=== PATIENT | female | born 1930 | race Caucasian/White ===

== ENCOUNTER 2017-01-08 08:42 | Day surgery (SDC) | payer MEDICARE, OTHER ==
[~2017-01-08] VITALS: Ht 154.9 cm; Wt 62.4 kg
--- NOTE | 2017-01-08 07:16 | PCM.HPANE ---
Patient Data Surgeon Admitting Provider: Attending Provider:Jenaro Arteaga DO Primary Care Physician:Isma Cota DO Other Provider:Velma Hernandezingham Anesthesia Reason for Visit Right Middle Trigger Finger Ht/WT & BMI Height (Feet): 5 Height (Inches): 1 Weight (Kilograms): 62.41 Body Mass Index 25.00 Allergies Coded Allergies: codeine (Verified Allergy, Severe, RASH, 11/01/14) diazepam (Unverified Allergy, Severe, HIVES, 11/01/14) hydrocodone (Unverified Allergy, Severe, RASH, ITCHING, 11/01/14) tramadol (Verified Allergy, Severe, RASH, 11/01/14) morphine (Unverified Allergy, Unknown, UNKNOWN, 11/01/14) propoxyphene (Verified Adverse Reaction, Severe, N&V, DIZZINESS, 11/01/14) Past Anesthesia History Anesthesia History: Denies:: Abnormal Airway, Anesthesia Reactions, Difficult Intubation, Malignant Hyperthermia Diabetes History Hx Diabetes?: Yes (last found Hgb A1c 6.5 on 11/14/16) Type of Diabetes: Type II Glycemic Control: Diet Controlled Current Bedside Blood Glucose: 108 MRSA MRSA: No Medications Blood Thinner: Aspirin Hypertension Medication: Yes Home Meds Incl Beta Del: Yes Reported Medications Cholecalciferol (Vitamin D3) (Vitamin D3)2,000 Unit Tablet2,000 Unit PO DAILY 01/06/17 Ascorbate Calcium (Vitamin C)500 Mg Zntdeq533 Mg PO DAILY 01/06/17 Febuxostat (Uloric)40 Mg Ltmqmt76 Mg PO DAILY 01/06/17 Spironolactone 25 Mg Ikesmu71.5 Mg PO DAILY #30 TABLET Ref 0 01/06/17 Pravastatin 80 Mg Zqtpbd83 Mg PO HS Ref 0 01/06/[address] 40 Mg Tablet.dr40 Mg PO DAILY Ref 0 01/06/17 Metformin 500 Mg Bluptn081 Mg PO DAILY Ref 0 01/06/17 Psyllium Husk (Metamucil)3.4 Gram/5.4 Gram Powder1 Capsule PO DAILY 01/06/17 Lisinopril 40 Mg Lubpvs29 Mg PO DAILY 30 Days Ref 0 01/06/17 Levothyroxine 25 Mcg Sfovsm72 Mcg PO DAILY Ref 0 01/06/17 Furosemide 40 Mg Dnxpee96 Mg PO DAILY 01/06/17 Multivits-Min/FA/Lycopene/Lut (Centrum Silver Tablet)1 Each Tablet1 Each PO DAILY 01/06/17 Carvedilol 12.5 Mg Cbsryu69.5 Mg PO BID Ref 0 01/06/17 Calcium Carbonate/Vitamin D3 (Calcium + Vitamin D Tablet)1 Each Tablet1 Each PO DAILY 01/06/17 Aspirin 325 Mg Oqbkvg476 Mg PO DAILY #1 BOTTLE 01/06/17 Acetaminophen (Tylenol Arthritis)650 Mg Tablet.er650 Mg PO Q8H PRN For Pain 01/06/17 Discontinued Reported Medications Acetaminophen (Tylenol)325 Mg Ixyceg433 Mg PO BID PRN For Pain 11/02/14 Cholecalciferol (Vitamin D3) (Vitamin D)2,000 Unit Capsule2,000 Unit PO EVERY OTHER DAY 30 Days Ref 0 11/01/14 Bisacodyl (Dulcolax)5 Mg Tablet.dr5 Mg PO HS PRN For Constipation Ref 0 03/29/14 Furosemide 40 Mg Eeraku80 Mg PO DAILY 30 Days 03/29/14 Lisinopril 40 Mg Pjwrzj20 Mg PO BID 30 Days Ref 0 03/29/14 Psyllium Seed (with Sugar) (Metamucil Packet)1 Each Packet1 Each PO DAILY PRN 03/29/14 Aspirin (Aspir 81)81 Mg Tablet.dr81 Mg PO DAILY Ref 0 03/29/14 Ascorbic Acid (Vitamin C)500 Mg Capsule.er500 Mg PO DAILY 03/29/14 Multivits-Min/FA/Lycopene/Lut (Centrum Silver Tablet)1 Each Tablet1 Each PO DAILY 03/29/14 Gabapentin 100 Mg Wvrbxzl592 Mg PO HS 30 Days Ref 0 03/29/14 Carvedilol 6.25 Mg Cibeeq31.5 Mg PO BID Ref 0 03/29/14 Pravastatin 40 Mg Ohiogr99 Mg PO PM 30 Days Ref 0 03/29/14 Spironolactone (Aldactone)25 Mg Eyvszh03.5 Mg PO NOON #30 TABLET Ref 0 03/29/14 Allopurinol 300 Mg Xlmtct436 Mg PO DAILY #30 TABLET Ref 0 03/29/14 History History of ENT Problems?: Yes HEENT History: Positive for:: Cataracts (bilateral) Hearing Problem Sinus Problem (prior hx septoplasty) Denies:: Abnormal Airway Difficult Intubation Dysphagia Other HEENT Pertinent History: past hx sublingual gland excision Hx of Heart Problems?: Yes Cardiovascular History: Positive for:: Atrial Fibrillation (HX OF ATRIAL TACHYARRYTHMIAS 1963) Edema Hypertension Irregular Heartbeat Valvular Heart Disease (echo 05/2016- ef 60-65%) Denies:: AICD Cardiac Surgery Chest Pain Congestive Heart Failure Heart Murmur Pacemaker Thrombophlebitis Other Cardiac History: bilateral carotid stenosis Hx of Respiratory Problem?: Yes Respiratory History: Positive for:: Use of C-PAP Machine Denies:: Asthma COPD Chest Surgery Dyspnea Emphysema Hemoptysis Oxygen Administration Pneumonia Tuberculosis Other Resp Pertinent History: pulmonary hypertension Hx Neurologic Problems?: Yes Neurological History: Positive for:: Dizziness TIA (resolved 2011) Denies:: Alzheimer's Disease CVA Dementia Headaches Parkinson's Disease Seizures Hx of GI Problems?: Yes Gastrointestinal History: Positive for:: Gastroesphageal Reflux Heartburn Hiatal Hernia (repaired) Denies:: Diverticulitis Gastrointestinal Bleeding Hepatitis Rectal Bleeding Hx of Problems?: No Genitourinary History: Denies:: HX of Hemodialysis Kidney Stones Urinary Tract Infection HX of Peritoneal Dialysis: No Female Hx: Denies:: Currently Problems with Breasts? Skin History: Denies:: History Skin Disorders? 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 ) Musculoskeletal Trauma (trigger finger current admission problem) Osteoarthritis Hx of Psycho/Social Problems?: No Psycho Social History: Positive for:: Anxiety Hx Depression Denies:: Bipolar Disorder Suicide Attempt Hx Surgeries?: Yes (HIATAL HERNIA, R shoulder,nasal,SALIVARY GLAND,parathyroid, BILAT BUNION,T&A) Hx Any Other Health Problems?: Yes Other History: Positive for:: Cancer (basal cell facial) Hospitalization ([facility] 2008) Denies:: Endocrine Disease Thyroid Disease History Blood Transfusions: Denies:: Blood Transfusions Hx Diabetes: Yes (last found Hgb A1c 6.5 on 11/14/16) Hx Alcohol Use: YesHx Substance Use: No Smoking Status: Former Smoker Have You Smoked inLast 12 mo: No Stop/Bang Treated for Sleep Apnea?: No Do You Have a CPAP Machine?: No S-Snoring: Do You Snore Loudly: No T-Tired: feel tired, fatigued: No O-Obsered: Observed not breath: No P-Blood Pressure: treated: Yes B- Body Mass Index > 35 kg/m2: No A- Age over 50: Yes N- Neck Large Circumference: No G- Gender Male: No TEMI Total Score: 2 TEMI Risk Assessment: Low Risk, <3 Yes Risk Assessment Category Category 1A: Patient has history of documented sleep apnea, and HAS NOT received any narcotic, sedative or anesthesia administration during this stay. Category 1B: Patient has history of documented sleep apnea, and HAS received any narcotic , sedative or anesthesia administration during this stay Category 2: Patient has SUSPECTED Obstructive Sleep Apnea, and HAS received any narcotic , sedative or anesthesia administration during this stay. Category 3: Patient has SUSPECTED Obstructive Sleep Apnea and HAS NOT received narcotic, sedative or anesthesia administration during this stay. Category 4: Outpatient in Procedural Areas with known sleep apnea or who screen positive for High Risk via the STOP/BANG questionnaire. Exam Exam General Appearance: Alert, Oriented X3, Cooperative, No Acute Distress HEENT/AIRWAY: MP 2 Lungs: Clear to Auscultation, Normal Air Movement Heart: Exam Unremarkable, Regular Rate/Rhythm, No Murmurs/Rubs/Gallops Plan Impression Patient chart reviewed, patient interviewed and anesthestic plan with risks, benefits, and alternatives discussed, and informed consent obtained. NPO Status: 11/02/14 water with pills ASA Physical Status: ASA3 Severe Disease (afib) Anesthetic Plan: GA, MAC Bene/Risks/Altern/Consents: Yes HP Complete Prior to Induction: Yes Quique Rosales MD Jan 08, 2017 07:16
[~2017-01-08 08:42] MED LIST: ACET-2766 PO; ASCO-294 PO; ASPI325T32 PO; CALC-140 PO; CARV12.52 PO; CHOL200025 PO; FEBU40TA PO; FURO40TA4 PO; LEVO25TA5 PO; LISI40TA PO; Lactated Ringer's 1,000 ML IV SCH; METF500T4 PO; MULT-1073 PO; PANT40TA3 PO; PRAV80TA2 PO; PSYL660P17 PO; SPIR25TA3 PO
[2017-01-08] MEDS ORDERED: Propofol 10,000 mCg/mL 20 mL Inj ONE (08:43)
[2017-01-08 09:50] VITALS: BP 144/51; PULSE 62; RESP 17; O2SAT 99
[2017-01-08] MEDS ORDERED: Lactated Ringer's 1,000 ML IV ONE (10:04)
[2017-01-08] MEDS ORDERED: oxyCODONE-Acetamin 5-325 mg Tablet PO PRN (10:35)
[2017-01-08] MEDS ORDERED: Lidocaine 1%-Epi 1:100,000 20 mL Inj NERVEBLOCK ONE (11:15)
[2017-01-08] MEDS ORDERED: Lactated Ringer's 500 ML IV PRN (11:27)
[2017-01-08] MEDS ORDERED: Lactated Ringer's 1,000 ML IV SCH (11:27)
[2017-01-08] MEDS ORDERED: Ondansetron 2 mg/mL 2 mL Inj IVPUSH PRN (11:30)
[2017-01-08] MEDS ORDERED: MetoCLOpramide 5 mg/mL 2 mL Inj IVPUSH PRN (11:30)
[2017-01-08] MEDS ORDERED: Phenylephrine 10,000 mCg/mL Inj IVPUSH PRN (11:30)
[2017-01-08] MEDS ORDERED: fentaNYL-PF 50 mCg/mL 2 mL Inj IVPUSH PRN (11:30)
[2017-01-08] MEDS ORDERED: Dexamethasone 4 mg/mL Inj IVPUSH PRN (11:30)
[2017-01-08] MEDS ORDERED: EPHEDrine Sulfate 50 mg/mL Inj IVPUSH PRN (11:30)
[2017-01-08 11:42] VITALS: BP 134/60; PULSE 66; RESP 16; O2SAT 99
[2017-01-08 11:49] VITALS: BP 146/52; PULSE 65; RESP 16; O2SAT 99
--- NOTE | 2017-01-08 15:57 | PCM.ANEP2 ---
Post Anesthesia Evaluation ASA/CMS Post Anesthesia VS in Patient's Normal Range?: Yes Resp Stable; Airway Patent?: Yes CV Function & Hydration Stable: Yes Mental Status Recovered?: Yes Pain control Satisfactory?: Yes N/V Control Satisfactory?: Yes Quique Rosales MD Jan 08, 2017 15:57
--- NOTE | 2017-01-08 15:57 | PCM.ANEP1 ---
Post Anesthesia Phase 1 PACU Phase 1 Assessment Vital Signs Vital Signs Date Time Temp Pulse Resp B/P Pulse Ox O2 Delivery O2 Flow Rate FiO2 01/08/17 11:49 36 65 16 146/52 99 Room Air 01/08/17 11:42 66 16 134/60 99 Room Air 01/08/17 09:50 35.8 62 17 144/51 99 Room Air Anesthetic Administered: MAC Level of Alertness: Awake, talking NICHOLS's with Equal Strength: Yes Pain: No Nausea or Vomiting: No Oxygen Delivery: Nasal Cannula Lungs: Clear to Auscultation, Normal Air Movement Dermatome Level: Full Sensation Quique Rosales MD Jan 08, 2017 15:57
--- NOTE | 2017-01-09 13:24 | OP ---
[address] [address] OPERATIVE REPORT PATIENT: SANDRA DALEY : 1930 MR#: [id number] ADMIT: 01/08/2017 JOB ID: [id number] DATE OF SURGERY: 01/08/2017 PREOPERATIVE DIAGNOSIS(ES): Right middle finger trigger finger. POSTOPERATIVE DIAGNOSIS(ES): Right middle finger trigger finger. PROCEDURE: Right middle finger A1 hira release. SURGEON: Jenaro Arteaga DO. ANESTHESIA: Monitored anesthesia care with local. BRIEF HISTORY: The patient is a pleasant, 86-year-old female with a longstanding history of right middle finger catching and locking. She had failed conservative treatment including injections and given time she opted to proceed with operative intervention. She understood the risks include, but not be limited to, neurovascular injury, tendon injury, infection, failure to resolve the patient's preoperative symptoms, stiffness, persistent pain, all of which might require further intervention. The patient had all questions answered. Consent was signed and placed in chart. PROCEDURE IN DETAIL: The patient was brought to the operative suite and placed supine on the operating room table. Surgical time-out was then performed. Everyone in the room was in agreement. After appropriate anesthesia was obtained, the right hand was then prepped and draped in sterile fashion. An oblique incision was made overlying a crease within the hand above the level of the A1 hira. Dissection was carried down through the soft tissues taking care to protect the neurovascular bundles on the radial and ulnar margin. Flexor tendon sheath was identified and incised in line with the underlying flexor tendons. The A1 hira was then released in its entirety. The patient was then asked to demonstrate range of motion of the hand and demonstrate a full composite fist. No further catching or locking was appreciated. Copious irrigation was then performed followed by closure of the skin with 5-0 nylon in simple interrupted fashion. ESTIMATED BLOOD LOSS: Less than 1 cc. COMPLICATIONS: None. DISPOSITION: The patient tolerated the procedure well. Anesthesia was reversed and the patient was transferred to the PACU to recover. POSTOPERATIVE PLAN: The patient will follow up in office in two weeks. Will remove the patient's sutures at that time and have her start working on range of motion and scar mobilization.
== END 2017-01-08 23:59 | disposition home or self-care (01) ==
LOC: SAS 08:42
PROVIDERS: ATTEND Orthopaedic Surgery
DX: M65.331 Trigger finger, right middle finger (principal); I10 Essential (primary) hypertension; E11.9 Type 2 diabetes mellitus without complications; E83.52 Hypercalcemia; I48.91 Unspecified atrial fibrillation; I51.9 Heart disease, unspecified; I27.2 Other secondary pulmonary hypertension; E78.5 Hyperlipidemia, unspecified; M19.90 Unspecified osteoarthritis, unspecified site; I65.23 Occlusion and stenosis of bilateral carotid arteries; F41.9 Anxiety disorder, unspecified; F32.9 Major depressive disorder, single episode, unspecified; G47.33 Obstructive sleep apnea (adult) (pediatric); K21.9 Gastro-esophageal reflux disease without esophagitis; G25.81 Restless legs syndrome; I45.4 Nonspecific intraventricular block; Z79.82 Long term (current) use of aspirin; Z79.84 Long term (current) use of oral hypoglycemic drugs; Z85.828 Personal history of other malignant neoplasm of skin; Z87.891 Personal history of nicotine dependence; Z86.73 Personal history of transient ischemic attack (TIA), and cerebral infarction without residual deficits
CPT/HCPCS: 26055; J7120